=== PATIENT | female | born 1960 | race Caucasian/White ===

== ENCOUNTER 2017-02-18 14:18 | Emergency (ER) | payer OTHER ==
[~2017-02-18] VITALS: Ht 160 cm; Wt 115.9 kg
[2017-02-18] MEDS ORDERED: NORCO 5/3251 TABLET PO (17:24)
[2017-02-18 17:38] VITALS: BP 142/77
== END 2017-02-18 17:40 | disposition home or self-care (01) ==
LOC: EME 14:18
DX: M25.562 Pain in left knee (principal); E11.9 Type 2 diabetes mellitus without complications; K21.9 Gastro-esophageal reflux disease without esophagitis; Z87.828 Personal history of other (healed) physical injury and trauma; Z90.49 Acquired absence of other specified parts of digestive tract; Z88.1 Allergy status to other antibiotic agents; Z88.8 Allergy status to other drugs, medicaments and biological substances
CPT/HCPCS: 93971; 99281; 99284